=== PATIENT | male | born 1945 | race Caucasian/White ===

== ENCOUNTER 2016-11-12 16:09 | Outpatient (CLI) | payer MEDICARE, OTHER | END 2016-11-12 16:10 | disposition home or self-care (01) | DX: M89.8X1 Other specified disorders of bone, shoulder (principal); M75.102 Unspecified rotator cuff tear or rupture of left shoulder, not specified as traumatic ==

== ENCOUNTER 2017-02-27 11:20 | Outpatient (CLI) | payer MEDICARE, OTHER ==
[2017-02-27 12:39] LABS: BASOPHILS % (AUTO) 1.5 %; EOSINOPHILS % (AUTO) 1.2 %; HCT - HEMATOCRIT 20.6 % (42.0-52.0); HGB - HEMOGLOBIN 7.4 g/dL (14.0-18.0); LYMPHOCYTES # (AUTO) 0.7 10^3/uL (1.5-3.5); LYMPHOCYTES % (AUTO) 24.2 %; MEAN CORPUSCULAR HEMOGLOBIN 34.9 pg (27.0-31.0); MEAN CORPUSCULAR HGB CONC 35.7 g/dL (32.0-36.0); MEAN CORPUSCULAR VOLUME 97.6 fL (80.0-94.0); MEAN PLATELET VOLUME 8.1 fL (7.4-11.4); MONOCYTES # (AUTO) 0.3 10^3/uL (0.0-1.0); MONOCYTES % (AUTO) 10.1 %; NEUTROPHILS # (AUTO) 1.7 10^3/uL (1.5-6.6); NUCLEATED RED BLOOD CELLS AUTO 0.1 /100WBC; RED BLOOD COUNT 2.12 10^6/uL (4.70-6.10); RED CELL DISTRIBUTION WIDTH 15.8 % (12.0-15.0); UNCORRECTED WHITE BLOOD COUNT 2.7 x10^3/uL; WHITE BLOOD COUNT 2.7 x10^3/uL (4.8-10.8)
[2017-02-27 13:07] LABS: ALBUMIN/GLOBULIN RATIO 1.5 (1.0-2.2); BILIRUBIN,TOTAL 0.9 mg/dL (0.2-1.0); CALCIUM 8.9 mg/dL (8.5-10.3); POTASSIUM 3.8 mmol/L (3.5-5.0); TOTAL PROTEIN 6.1 g/dL (6.7-8.2)
== END 2017-02-27 11:21 | disposition home or self-care (01) ==
LOC: LAB.R 11:20
DX: C79.82 Secondary malignant neoplasm of genital organs (principal); C61 Malignant neoplasm of prostate
CPT/HCPCS: 80053; 83615; 84153; 85025

== ENCOUNTER 2017-03-07 12:01 | Outpatient (CLI) | payer MEDICARE, OTHER | END 2017-03-07 12:02 | disposition critical access hospital (66) | LOC: EMS 12:01 | PROVIDERS: ATTEND Surgery | DX: R53.1 Weakness (principal); R42 Dizziness and giddiness | CPT/HCPCS: A0425; A0427 ==

== ENCOUNTER 2017-03-07 12:11 | Emergency (ER) | payer MEDICARE, OTHER ==
--- NOTE | 2017-03-07 12:31 | ED Physician Documentation ---
History of Present Illness - Stated complaint Stated Complaint: Low H&H - Chief complaint Chief Complaint: General - History obtained from History obtained from: Patient, Family (), EMS - History of Present Illness Timing: Other (72-year-old gentleman with long-standing metastatic prostate cancer with metastases to bone and pathologic fractures. He had been on infusion chemotherapy which stopped working and was on oral chemotherapy up until a week ago which he had a lot of side effects with and has caused him to be quite anemic with a hemoglobin of 7. He is symptomatic with it with lightheadedness and dizziness and generalized weakness. He had one episode of vomiting yesterday but it has been nonbloody. He has been constipated because of pain medications but denies any dark or tarry stools here. Planning to start hospice later this week but he is not yet enrolled.) Review of Systems Constitutional: denies: Fever, Chills Eyes: reports: Reviewed and negative Nose: reports: Reviewed and negative Throat: reports: Reviewed and negative PD PAST MEDICAL HISTORY - Present Medications Home Medications: Ambulatory Orders Medication Instructions Recorded Confirmed Leuprolide [Lupron] 22.5 mg IM 03/07/17 Lorazepam 1 mg PO QPM 03/07/17 03/07/17 Olaparib [Lynparza] 50 mg PO DAILY 03/07/17 03/07/17 Oxycodone HCl [Oxycontin] 20 mg PO BID 03/07/17 03/07/17 Prednisolone [Millipred Dp] 5 mg PO DAILY 03/07/17 03/07/17 Tamsulosin [Flomax] 0.4 mg PO DAILY 03/07/17 03/07/17 oxyCODONE [Roxicodone] 1 - 2 tab PO Q6H PRN 03/07/17 03/07/17 - Allergies Allergies/Adverse Reactions: Allergies Allergy/AdvReac Type Severity Reaction Status Date / Time No Known Drug Allergies Allergy Verified 03/07/17 12:31 PD ED PE NORMAL - Vitals Vital signs reviewed: Yes - General General: Alert and oriented X 3, No acute distress, Other (PALE) - HEENT HEENT: PERRL, EOMI - Cardiac Cardiac: RRR, No murmur - Respiratory Respiratory: No respiratory distress, Clear bilaterally - Abdomen Abdomen: Non tender - Neuro Neuro: Alert and oriented X 3, Normal speech - Psych Psych: Normal mood, Normal affect Results - Vitals Vitals: Vital Signs - 24 hr 03/07/17 12:16 Temperature 36.9 C Heart Rate 87 Respiratory 18 Rate Blood Pressure 125/86 H O2 Saturation 100 Oxygen O2 Source Room air PD MEDICAL DECISION MAKING - ED course ED course: 72-year-old gentleman with advanced prostate cancer, metastatic, has failed chemotherapy and is planning on entering hospice very soon. Here for a blood transfusion because of symptomatic anemia because of cancer treatment. Will transfuse 2 units. He would like to go home as soon as possible. Departure - Departure Disposition: 01 , Self Care Clinical Impression: Symptomatic anemia Condition: Good Record reviewed to determine appropriate education?: Yes Comments: Return anytime if worse or for further evaluation and treatment if needed. Follow-up as scheduled for enrollment in hospice. Your blood pressure was elevated today on check into the emergency department. This does not mean that you have hypertension, it is a common phenomenon to come to the emergency department and have elevated blood pressure. I recommend that she see your primary care physician within the week to have it rechecked when you are feeling better.
[2017-03-07] MEDS ORDERED: SODIUM CHLORIDE FLUSH 0.9% 10 ML SYRINGE IVP ONE (12:59)
[2017-03-07 17:42] VITALS: BP 119/76
== END 2017-03-07 17:35 | disposition home or self-care (01) ==
LOC: EDUNIT# → ED 12:11 → SUPCPDRO 12:11 → ED 17:35
DX: D64.81 Anemia due to antineoplastic chemotherapy (principal); C61 Malignant neoplasm of prostate; C79.51 Secondary malignant neoplasm of bone; R03.0 Elevated blood-pressure reading, without diagnosis of hypertension
CPT/HCPCS: 36415; 36430; 86850; 86900; 86901; 86920; 99284; P9016

== ENCOUNTER 2017-04-11 17:15 | Outpatient (CLI) | payer MEDICARE, OTHER ==
[2017-04-11 18:12] LABS: BILIRUBIN,URINE NEGATIVE (NEGATIVE)
[2017-04-11 18:45] LABS: UA w/ MICROSCOPIC CHARGE YES
[2017-04-11 18:59] LABS: UR CULTURE IF IND INDICATED
== END 2017-04-11 17:16 | disposition home or self-care (01) ==
LOC: LAB.R 17:15
PROVIDERS: ATTEND Family Medicine
DX: N39.0 Urinary tract infection, site not specified (principal)
CPT/HCPCS: 81001; 81003; 87077; 87086